=== PATIENT | female | born 1960 | race Caucasian/White ===

== ENCOUNTER 2018-08-14 21:13 | Emergency (ER) | payer OTHER ==
[2018-08-14] MEDS ORDERED: Ketorolac Tromethamine 30 MG/ML VIAL ONE (21:29)
--- NOTE | 2018-08-14 22:04 | RAD ---
FOUR VIEWS RIGHT KNEE: 08/14/18 HISTORY: Pain. COMPARISON: None. FINDINGS: Joint spaces are preserved. No fracture or malalignment. No significant joint effusion Minimal osteophyte formation of the patellofemoral compartment and the medial compartment. IMPRESSION: No fracture. Minimal bicompartmental degenerative change. POS: [facility]
== END 2018-08-14 22:14 | disposition home or self-care (01) ==
LOC: ERS 21:13
DX: M25.561 Pain in right knee (principal); E03.9 Hypothyroidism, unspecified; Z79.899 Other long term (current) drug therapy
CPT/HCPCS: 96372; J1885

== ENCOUNTER 2019-02-26 01:03 | Outpatient (CLI) | payer OTHER ==
[2019-02-26 09:57] LABS: Bilirubin Negative (Negative); Blood, Urine Negative (Negative); Clarity CLEAR (Clear); Glucose, Urine (Dipstick) Negative (Negative); Leukocyte Negative (Negative); Nitrite Negative (Negative); Protein, Urine (Dipstick) Negative (Neg-Trace); Specific Gravity, Urine 1.018 (1.002-1.036); Urobilinogen 0.2 mg/dL (0.2-1.0)
[2019-02-26 09:59] LABS: Bacteria/HPF None Seen HPF (None Seen); Hyaline Casts/LPF 0-3 HYALINE CAST LPF (0-3 Hyaline); Pathc Cast-AUWi Flag 0.27 (0-2.49); RBC/HPF 0-3 HPF (0-3); Squamous Epithelial 0-3 HPF (0-3); WBC/HPF 0-3 HPF (0-3)
[2019-02-26 10:07] LABS: INR-International Normal Ratio 0.9; PTT 29.3 SEC (22.9-36.1); Prothrombin Time 12.3 SEC (12.0-14.7)
--- NOTE | 2019-02-26 20:04 | EKG ---
Test Reason : Blood Pressure : / mmHG Vent. Rate : 066 BPM Atrial Rate : 066 BPM P-R Int : 148 ms QRS Dur : 096 ms QT Int : 398 ms P-R-T Axes : 014 019 052 degrees QTc Int : 417 ms Normal sinus rhythm Incomplete right bundle branch block Borderline ECG No previous ECGs available Confirmed by BRUNILDA LOCKHART, DR. Rollins ([id number]) on 02/26/2019 8:04:16 PM Referred By: MIRI Confirmed By:DR. Ayo WORLEY MD
== END 2019-02-26 01:04 | disposition home or self-care (01) ==
LOC: LABBT 01:03
PROVIDERS: ATTEND Orthopaedic Surgery
DX: Z01.818 Encounter for other preprocedural examination (principal); M17.11 Unilateral primary osteoarthritis, right knee
CPT/HCPCS: 81001; 85610; 85730; 87086; 93005; 93010

== ENCOUNTER 2019-02-26 08:00 | Inpatient (IN) | payer OTHER ==
--- NOTE | 2019-03-05 08:32 | HP ---
HISTORY OF PRESENT ILLNESS: The patient is a 58-year-old female, who has a long history of progressive right knee pain without specific injury. She has had progressive pain with weightbearing and change in position despite rest, restriction of activities. Multiple injections including cortisone and Synvisc. She has had progressive symptoms despite rest, restriction of activities, and lifestyle adjustments. She cannot tolerate NSAIDs due to history of previous gastric bypass. The pain is now in her day-to-day activities including walking, getting dressed, and sleeping. PAST MEDICAL HISTORY: The patient has had previous gastric band and history of gastric ulcer. She has had carpal tunnel release. She has no other major medical problems. ALLERGIES: SHE HAS NO KNOWN ALLERGIES. FAMILY HISTORY: Otherwise, unremarkable. SOCIAL HISTORY: Otherwise, unremarkable. REVIEW OF SYSTEMS: Otherwise, unremarkable. PHYSICAL EXAMINATION: GENERAL: Reveals a healthy female. HEENT: Unremarkable. NECK: Supple. CHEST: Clear. HEART: Regular rate and rhythm. ABDOMEN: Soft and nontender. PELVIC: Deferred. RECTAL: Deferred. BREASTS: Deferred. EXTREMITIES: Pertinent findings of the right knee, there is puffiness. No definite effusion. There is slight varus. There is tenderness and crepitus over the medial joint line. Range of motion is 3 to 115 degrees. There is no instability. Distal pulses are 1+. There is no pain with range of motion of the right hip. NEUROVASCULAR: Intact. DIAGNOSTIC STUDIES: X-rays of the right knee reveal medial joint space narrowing with minimal joint space remaining. MRI scan of the knee reveals grade 4 changes in the medial compartment and degenerative medial meniscal tear and tricompartmental osteophytes. IMPRESSION: Degenerative arthritis, right knee. PLAN: Right total knee replacement. The nature of the surgery, length of recovery, and potential complications such as infection, loss of motion, incomplete relief, neurovascular injury, thromboembolic phenomena, possible transfusion, and need for revision have been discussed in detail. Job ID: [id number]
[2019-03-09] MEDS ORDERED: Lidocaine 1% (PF) 30 ML VIAL ONE (06:12)
[2019-03-09] MEDS ORDERED: Midazolam HCl 2 mg/2 ml Vial ONE (06:12)
[2019-03-09] MEDS ORDERED: Fentanyl 100 MCG/2 ML VIAL ONE ×4 (06:12→09:36)
[2019-03-09] MEDS ORDERED: Tranexamic Acid 1,000 MG/10 ML VIAL ONE ×2 (06:16→08:43)
[2019-03-09] MEDS ORDERED: Sodium Chloride 0.9% 100 ML ONE (06:16)
[2019-03-09] MEDS ORDERED: Bupivacaine/Epinephrine 0.25% 30 ML VIAL ONE (06:43)
[2019-03-09] MEDS ORDERED: Ketorolac Tromethamine 30 MG/ML VIAL IVP PRN (07:13)
[2019-03-09] MEDS ORDERED: HYDROcodone/Acetaminophen 10/325 mg Tablet PO PRN ×2 (07:13)
[2019-03-09] MEDS ORDERED: Ropivacaine HCl/PF 250 ML in Premix Bag 1 BAG NERVE BLCK SCH (07:13)
[2019-03-09] MEDS ORDERED: Zolpidem Tartrate 5 MG TAB PO PRN ×2 (07:13→11:19)
[2019-03-09] MEDS ORDERED: Promethazine HCl 25 MG/ML VIAL IM PRN ×2 (07:13→08:52)
[2019-03-09] MEDS ORDERED: Ondansetron PF 4 MG/2 ML Vial IVP PRN ×2 (07:13→11:19)
[2019-03-09] MEDS ORDERED: traMADol HCl 50 MG TAB PO PRN ×3 (07:13→11:19)
[2019-03-09] MEDS ORDERED: Fentanyl 100 MCG/2 ML VIAL SLOW IVP PRN ×3 (07:14→11:19)
[2019-03-09] MEDS ORDERED: HYDROmorphone 2 MG/ML VIAL SLOW IVP PRN (08:52)
[2019-03-09] MEDS ORDERED: Ondansetron HCl/PF 4 MG/2 ML Vial IVP PRN (08:52)
[2019-03-09] MEDS ORDERED: Promethazine HCl 25 MG/ML VIAL SLOW IVP PRN ×2 (08:52→11:19)
[2019-03-09] MEDS ORDERED: Morphine Sulfate 2 MG/ML SYRINGE SLOW IVP PRN (08:52)
[2019-03-09] MEDS ORDERED: PACU-Morphine 4MG/ML VIAL SLOW IVP PRN (08:52)
[2019-03-09] MEDS ORDERED: Tranexamic Acid 1,000 MG in Sodium Chloride 0.9% 100 ML IVPB SCH ×2 (09:00→12:30)
--- NOTE | 2019-03-09 09:05 | RAD ---
RIGHT KNEE 2 VIEWS: HISTORY: Total knee replacement FINDINGS: There are recent postoperative changes of total knee arthroplasty in good position and alignment. Sof t tissue air is present.
[2019-03-09] MEDS ORDERED: Morphine 4 MG/ML VIAL ONE (10:09)
[2019-03-09] MEDS ORDERED: Promethazine HCl 25 MG/ML VIAL ONE (10:13)
[2019-03-09] MEDS ORDERED: diphenhydrAMINE 25 MG CAP PO PRN (11:19)
[2019-03-09] MEDS ORDERED: Acetaminophen 325 MG TAB PO PRN (11:19)
[2019-03-09] MEDS ORDERED: Ropivacaine 0.2% HCl/PF (40 MG/20 ML VIAL) ONE (11:23)
[2019-03-09] MEDS ORDERED: Ropivacaine 0.5% HCl/PF (150 MG/30 ML VIAL) ONE (11:23)
[2019-03-09] MEDS ORDERED: Vancomycin HCl 1 GM in Premix Bag 1 BAG IVPB SCH ×2 (12:00→19:00)
[2019-03-09] MEDS ORDERED: Lidocaine 1% PF 5 ML VIAL ONE (12:03)
[2019-03-09] MEDS ORDERED: PROPOFOL 200 MG/20 ML VIAL ONE (12:03)
[2019-03-09] MEDS ORDERED: Ondansetron PF 4 MG/2 ML Vial ONE (12:03)
[2019-03-09] MEDS ORDERED: Dexamethasone 20 MG/5 ML VIAL ONE (12:03)
[2019-03-09 12:33] VITALS: BMI 30.2
[2019-03-09] MEDS: Sodium Chloride 0.9% 1,000 ML IV SCH ×3 (12:47→20:46)
--- NOTE | 2019-03-09 12:49 | OP ---
DATE OF PROCEDURE: 03/09/2019 [employer]: Anselmo Inman PA-C ANESTHESIA: General plus adductor canal and sciatic nerve blocks. PREOPERATIVE DIAGNOSIS: Degenerative arthritis, right knee. POSTOPERATIVE DIAGNOSIS: Degenerative arthritis, right knee. PROCEDURE: Right total knee replacement with computer-assisted navigation with cemented [employer] components (#3 femoral component, #4 primary tibial base plate with 9 mm CS plastic insert, and A29 all-plastic patellar component). DESCRIPTION OF PROCEDURE: After satisfactory anesthesia was induced in supine position, sequential compression device was applied to the nonoperative leg throughout the procedure. The right leg was then prepped and draped in routine sterile fashion. The leg was elevated and exsanguinated with an Esmarch bandage and the tourniquet was inflated to 300 mmHg. A gently curved medial parapatellar incision was made, carried down through the subcutaneous tissues and bleeding points controlled with Bovie cautery. Medial parapatellar arthrotomy was performed of the patella, this was carried laterally and portions of the fat pad were excised for exposure. There was marked degenerative arthritis of the knee especially medially with large areas of exposed bone. Using the Brandpotion pinless navigation system and the appropriate guides, the distal femoral and proximal tibial articular surfaces were excised with an oscillating saw to accept the trial components. It was felt that #3 femoral component and #4 tibial base plate with 9 mm CS plastic insert gave appropriate size, fit, stability, and correction of the preoperative deformity. The patellar articular surface was excised to accept an all-plastic A29 patellar component. There was good range of motion and good patellar tracking. The trial components were removed. The knee was copiously irrigated with pulsatile lavage. The bony surfaces were thoroughly cleaned and dried. The permanent components were then cemented in a single stage using one package of cement premixed with 1 g of tobramycin powder. Excess cement was removed. There was again good fit and stability of the components. The knee was copiously irrigated. The medial retinaculum and quadriceps mechanism were closed with interrupted #2 Vicryl and a running #2 Quill. Subcutaneous tissues were closed with running 0 Quill suture and the skin was closed with running subcuticular 3-0 Monoderm and SurgiSeal skin adhesive. A sterile bulky dressing was applied and the tourniquet deflated after 67 minutes. The foot promptly pinked up and a sequential compression device was applied to her operated leg. She was awakened and taken to the recovery room in stable condition. There were no apparent intraoperative complications. The estimated blood loss was less than 100 mL. Job ID: [id number]
[2019-03-09] MEDS: HYDROcodone/Acetaminophen 10/325 mg Tablet PO PRN ×3 (13:20→21:10)
[2019-03-09] MEDS: CEFAZOLIN 2 GM in Premix Bag 1 BAG IVPB SCH ×2 (14:44→21:02)
[2019-03-09] MEDS: Ferrous Gluconate 324 MG TAB PO SCH (20:38)
[2019-03-09] MEDS: Senokot S 8.6-50 MG TAB PO SCH (20:38)
[2019-03-09] MEDS: cycloSPORINE 0.05% Ophthalmic Droperette EA EYE SCH (20:45)
[2019-03-10 04:54] LABS: Hemoglobin 11.7 g/dL (12.0-16.0); Mean Corpuscular HGB CONC 33.3 g/dL (32.0-36.0); Mean Corpuscular Hemoglobin 30.5 pg (27.0-31.0); Mean Corpuscular Volume 91.7 fL (78.0-98.0); Mean Platelet Volume 6.9 fL (7.4-10.4); Platelet Count 243 thou/uL (130-400); RBC Distribution Width 12.2 % (11.5-14.5); Red Blood Cell (RBC) Count 3.83 mill/uL (4.20-5.40); White Blood Cell (WBC) Count 9.8 thou/uL (4.8-10.8)
[2019-03-10] MEDS ORDERED: Levothyroxine Sodium 75 MCG TAB PO SCH (06:00)
[2019-03-10] MEDS: Levothyroxine Sodium 75 MCG TAB PO SCH (06:11)
[2019-03-10] MEDS: HYDROcodone/Acetaminophen 10/325 mg Tablet PO PRN ×3 (06:37→20:50)
[2019-03-10] MEDS: Rivaroxaban 10 MG TAB PO SCH (08:17)
[2019-03-10] MEDS: Cyanocobalamin (Vitamin B-12) 1,000 MCG TAB PO SCH (08:17)
[2019-03-10] MEDS: Ferrous Gluconate 324 MG TAB PO SCH ×2 (08:17→20:50)
[2019-03-10] MEDS: Senokot S 8.6-50 MG TAB PO SCH ×2 (08:17→20:50)
[2019-03-10] MEDS: Multivitamin W/ Minerals 1 TAB PO SCH (08:17)
[2019-03-10] MEDS: cycloSPORINE 0.05% Ophthalmic Droperette EA EYE SCH ×2 (10:51→22:00)
--- NOTE | 2019-03-10 15:07 | PRG ---
DATE OF SERVICE: 03/10/2019 SUBJECTIVE: Regi is a 58-year-old female, postoperative day 1 from a right total knee arthroplasty. Pain has been well controlled, and she has very little in the way of complaints today. She ambulated approximately 300 feet yesterday evening. OBJECTIVE: VITAL SIGNS: Temperature 98.5, pulse 74, respiratory rate 16, blood pressure is 112/67. GENERAL: She is alert and oriented to person, place, time, and situation. Grossly nonfocal. Appropriate with examiner. EXTREMITIES: Her incision is clean and closed. There is no erythema. No strikethrough noted. LABORATORY DATA: Hemoglobin and hematocrit 11.7 and 35.2. IMPRESSION: 1. A 58-year-old white female, postoperative day 1 right total knee arthroplasty. 2. Asymptomatic anemia. PLAN: Continue current care. Discharge tomorrow. Job ID: [id number]
[2019-03-11] MEDS: Levothyroxine Sodium 75 MCG TAB PO SCH (06:46)
[2019-03-11] MEDS: HYDROcodone/Acetaminophen 10/325 mg Tablet PO PRN (08:39)
[2019-03-11] MEDS: Ferrous Gluconate 324 MG TAB PO SCH (08:40)
[2019-03-11] MEDS: Rivaroxaban 10 MG TAB PO SCH (08:41)
[2019-03-11] MEDS: Multivitamin W/ Minerals 1 TAB PO SCH (08:41)
[2019-03-11] MEDS: Senokot S 8.6-50 MG TAB PO SCH (08:41)
[2019-03-11] MEDS: Cyanocobalamin (Vitamin B-12) 1,000 MCG TAB PO SCH (08:41)
[2019-03-11] MEDS: cycloSPORINE 0.05% Ophthalmic Droperette EA EYE SCH (09:54)
[2019-03-11 12:04] VITALS: BP 129/80; TEMP 98
== END 2019-03-11 15:10 | disposition home or self-care (01) | DRG 470 ==
LOC: SURG A 03-09 05:05 → SJJU 03-09 11:11
PROVIDERS: ADMIT Orthopaedic Surgery; ATTEND Orthopaedic Surgery
PROC: 0SRC0J9 Replacement of Right Knee Joint with Synthetic Substitute, Cemented, Open Approach (ICD-10-PCS; principal; 2019-03-09)
DX: M17.11 Unilateral primary osteoarthritis, right knee (principal); D64.9 Anemia, unspecified; E03.9 Hypothyroidism, unspecified; K21.9 Gastro-esophageal reflux disease without esophagitis; J30.2 Other seasonal allergic rhinitis; Z90.710 Acquired absence of both cervix and uterus; Z79.899 Other long term (current) drug therapy; Z98.84 Bariatric surgery status
CPT/HCPCS: 36415; 85027; 86850; 86900; 86901; C1713; C1776; J0690; J1100; J2001; J2250; J2270; J2405; J2550; J2704; J2795; J3010; J3370; J3490

== ENCOUNTER 2019-03-03 08:44 | Outpatient (CLI) | payer OTHER | END 2019-03-03 08:45 | disposition home or self-care (01) | LOC: LABBT 08:44 | PROVIDERS: ATTEND Orthopaedic Surgery | DX: Z53.9 Procedure and treatment not carried out, unspecified reason (principal) ==

== ENCOUNTER 2019-06-22 14:19 | Day surgery (SDC) | payer OTHER ==
[2019-06-22] MEDS ORDERED: Ondansetron PF 4 MG/2 ML Vial ONE ×3 (14:34→20:24)
[2019-06-22] MEDS ORDERED: Morphine 4 MG/ML VIAL ONE (14:34)
[2019-06-22] MEDS ORDERED: Sodium Chloride 0.9% 100 ML ONE (14:49)
[2019-06-22] MEDS ORDERED: Piperacillin/Tazobactam 3.375 GM VIAL ONE (14:49)
[2019-06-22] MEDS ORDERED: Dexamethasone 20 MG/5 ML VIAL ONE (14:59)
[2019-06-22] MEDS ORDERED: Lidocaine 1% PF 5 ML VIAL ONE (14:59)
[2019-06-22] MEDS ORDERED: PHENYLEPHRINE-NS 100 MCG/ML 10 ML SYRINGE ONE (14:59)
[2019-06-22] MEDS ORDERED: PROPOFOL 200 MG/20 ML VIAL ONE (14:59)
[2019-06-22] MEDS ORDERED: Glycopyrrolate 0.2 MG/ML 5 ML SYRINGE ONE (14:59)
[2019-06-22] MEDS ORDERED: Rocuronium Bromide 10 MG/ML (10ML VIAL) ONE (14:59)
[2019-06-22] MEDS ORDERED: Succinylcholine Chloride 20 MG/ML 10 ml SYRINGE FS ONE (14:59)
[2019-06-22 15:00] LABS: #Basophils 0.1 thou/uL (0.0-0.2); #Eosinphils 0.2 thou/uL (0.0-0.7); #Monocytes 0.5 thou/uL (0.11-0.59); #Neutrophils 3.6 thou/uL (1.40-6.50); %Eosinophils 2.4 % (0.0-10.0); %Lymphocytes 41.2 % (21.0-51.0); %Neutrophils 48.4 % (42.0-75.0); Hemoglobin 13.7 g/dL (12.0-16.0); Mean Corpuscular HGB CONC 33.9 g/dL (32.0-36.0); Mean Corpuscular Hemoglobin 29.6 pg (27.0-31.0); Mean Corpuscular Volume 87.4 fL (78.0-98.0); Mean Platelet Volume 6.9 fL (7.4-10.4); Platelet Count 298 thou/uL (130-400); RBC Distribution Width 12.4 % (11.5-14.5); Red Blood Cell (RBC) Count 4.63 mill/uL (4.20-5.40); White Blood Cell (WBC) Count 7.4 thou/uL (4.8-10.8)
[2019-06-22 15:23] LABS: ALT (SGPT) 12 U/L (8-55); AST (SGOT) 17 U/L (5-34); Albumin 4.1 g/dL (3.4-4.8); Alkaline Phosphatase 131 U/L (40-110); Anion Gap 12 mmol/L (10-20); BUN (Urea Nitrogen) 10 mg/dL (9.8-20.1); Bilirubin, Total 0.4 mg/dL (0.2-1.2); Calc. Creatinine Clearance 0 mL/min (70-130); Calcium 9.5 mg/dL (7.8-10.44); Carbon Dioxide 24 mmol/L (23-31); Chloride 103 mmol/L (98-107); Estimated GFR-MDRD 69; Globulin 3.3 g/dL (2.4-3.5); Glucose 98 mg/dL (80-115); Protein, Total 7.4 g/dL (6.0-8.3); Sodium 135 mmol/L (136-145)
[2019-06-22 15:27] LABS: PTT 31.8 SEC (22.9-36.1); Prothrombin Time 12.8 SEC (12.0-14.7)
[2019-06-22] MEDS ORDERED: HYDROmorphone 0.5 MG/0.5 ML SYRINGE ONE (15:32)
[2019-06-22] MEDS ORDERED: Midazolam HCl 2 mg/2 ml Vial ONE (15:32)
[2019-06-22] MEDS ORDERED: Fentanyl 100 MCG/2 ML VIAL ONE ×2 (15:32→17:47)
[2019-06-22] MEDS ORDERED: Lidocaine 2% Jelly 5 ML TUBE ONE (15:32)
[2019-06-22] MEDS ORDERED: Bupivacaine/Epinephrine 0.25% 30 ML VIAL ONE (15:36)
--- NOTE | 2019-06-22 15:46 | HP ---
HISTORY OF PRESENT ILLNESS: Ms. Wright is a 59-year-old woman, who presented to Emergency Department in [place] earlier today. The patient was complaining of insidious onset periumbilical abdominal pain, which started 3 days ago. Pain intensified to high 10/10 by midnight, associated with multiple episodes of nausea, but no emesis. She thought she had fever, although she did not record her body temperature. She did experience some chills. The pain fails to resolve. As a result, the patient presented to emergency department today. She reports having bowel movement this morning. Last meal was small breakfast at 9 o'clock this morning. Currently, her pain is located in the right lower quadrant. It is now rated 7/10. PAST MEDICAL HISTORY: Pertinent for degenerative arthritic disease and hypothyroidism. She had a remote history of bleeding ulcer, but has not had any problems over the last 2 to 3 years. PAST SURGICAL HISTORY: Pertinent for x3, laparoscopic gastric bypass for obesity, total right knee arthroplasty 4 months ago, right carpal tunnel release as well as right thumb release of trigger finger and total abdominal hysterectomy. SOCIAL HISTORY: She is , lives at home with her . She works at a local [employer]. She denies any cigarette smoking or illicit drug abuse. She admits to occasional intake of ethanol in moderate amount. PRE-HOSPITAL MEDICATIONS: Include; 1. Levothyroxine 75 mcg p.o. daily. 2. Glucosamine complex one p.o. daily. 3. Vitamin B12 1000 mcg p.o. daily. ALLERGIES: THE PATIENT DENIES ANY KNOWN DRUG ALLERGIES. REVIEW OF SYSTEMS: Ten-point review of systems essentially unremarkable except as stated in past medical history and chief complaint. PHYSICAL EXAMINATION: GENERAL: This reveals a 59-year-old normally developed woman, who is otherwise coherent and interactive and appears stated age. The patient is alert and oriented x3. She appears to be in no acute distress at time of my evaluation. VITAL SIGNS: Today includes blood pressure 166/79, pulse is 73, respiratory rate is 16, temperature is 98 degrees Fahrenheit, oxygen saturation is 96% on room air. HEENT: Reveals normocephalic and atraumatic. The pupils are equal, round, reactive to light and accommodation. Extraocular muscles are intact bilaterally. No scleral icterus is present. Oral mucosa is pink and moist. No lesions are noted. NECK: Supple. No palpable lymphadenopathy or thyromegaly present. HEART: Reveals regular rate and rhythm. No murmurs or gallops auscultated. LUNGS: Clear to auscultation bilaterally. Her breathing is regular and nonlabored. ABDOMEN: Soft and moderately obese. She has right lower quadrant tenderness on McBurney's. She has a positive Rovsing sign. Liver and spleen nonpalpable below costal margin. EXTREMITIES: Reveal 2+ radial and pedal pulses bilaterally. No ankle edema is present. She has a healed anterior right knee vertical incision consistent with previous history of right knee arthroplasty. She has a low Pfannenstiel incision that is completely healed, consistent with prior history of and abdominal hysterectomy. NEUROLOGIC: Reveals no focal deficits present. LABORATORY FINDINGS: Include a CBC obtained in [place] with 7400 white blood cells, hemoglobin and hematocrit are 13.7 and 40.4 respectively. Platelet count 298,000. At the time of my dictation, basic metabolic profile has been obtained and results pending at this time. I have personally reviewed the CT scan of the abdomen and pelvis, which was obtained earlier in [place], which is consistent with dilated appendix with periappendiceal fat stranding. There is also a small amount of free pelvic fluid with no pneumoperitoneum present. IMPRESSION: Acute appendicitis. RECOMMENDATIONS: Laparoscopic appendectomy. I have advised the patient of the above findings and recommendation. Also, I informed the patient of the risks and benefits of the proposed surgery to include, but not limited to bleeding, infection, injury to bowel or surrounding structures. This information was provided to the patient and her at bedside in the presence of her nurse. The patient and her have both indicated understanding of the information provided. I have answered their questions. The patient has granted consent for this admission and surgical intervention. Job ID: [id number]
--- NOTE | 2019-06-22 19:04 | OP ---
DATE OF PROCEDURE: 06/22/2019 PREOPERATIVE DIAGNOSIS: Acute appendicitis. POSTOPERATIVE DIAGNOSIS: Acute appendicitis. OPERATION PERFORMED: Laparoscopic appendectomy. ANESTHESIA: General endotracheal. ESTIMATED BLOOD LOSS: 5 mL. FLUIDS GIVEN: 1500 mL crystalloids. COUNTS: Sponge and instrument counts were verified as correct x2. COMPLICATIONS: None apparent at time of operation. INDICATIONS FOR OPERATION: A 59-year-old woman presented with 3-day history of abdominal pain. Clinical radiographic examination was consistent with acute appendicitis, for which the patient was brought to the operating room for appendectomy. Findings are consistent with suppurative appendix with evidence of perforation at the base. No pus or fecal contamination. DESCRIPTION OF PROCEDURE: Informed consent was obtained from the patient. She was brought to the operating room and placed in supine position. Following general anesthesia, a Kyle catheter was inserted and placed to bedside drain. The abdomen was sterilely prepped and draped in usual fashion. The skin below the umbilicus was infiltrated with 0.25% Marcaine with epinephrine. A small curvilinear infraumbilical incision was made using 11 scalpel. Umbilical stalk was grasped with Saad and elevated. Veress needle was inserted through the incision and placed in the peritoneal cavity through which the abdomen was insufflated with 3 L of CO2 gas. Intraabdominal pressure was noted at 1 mmHg. Following abdominal insufflation, Veress needle was removed and a 5 mm trocar introduced using a Visiport under laparoscopy. Laparoscopy confirmed proper placement of the port. No injuries to underlying structures. Additional laparoscopy reveals the right lower quadrant obscured by omental adhesions. Additionally, there were omental adhesions in the anterior abdominal wall and pelvis from previous . At this juncture, a 5 mm left lower quadrant port was placed under direct vision. Through this, the LigaSure device was introduced and omental adhesions were taken down to reveal the anterior abdominal wall over the pelvis. Under direct laparoscopy, a 5 mm suprapubic port was then placed. The patient was placed in a Trendelenburg position, rotated to her left. I then introduced a Prestige grasper through the left lower quadrant port site, using this to bluntly take down omental adhesions to reveal retrocecal suppurative appendix. Endo-Vincenzo forceps was introduced through the suprapubic port site grasping the appendix, which was elevated. The mesoappendix was sterilely divided at the base using the LigaSure device with good hemostasis. The appendix itself was divided at the appendicocecal junction using an Endoloop. The suppurative appendix was delivered off the abdominal cavity using an EndoCatch. Operative site was inspected for good hemostasis. Finding no other pathology, laparoscopy was terminated. The operative site was irrigated with saline. The abdomen was desufflated. All ports and instruments removed and accounted for. Skin incisions were closed using 4-0 Monocryl suture in subcuticular fashion. Dermabond was applied over incisional closure. The patient tolerated the operation without any apparent complication and was returned to recovery room in satisfactory condition. Job ID: [id number]
[2019-06-22] MEDS ORDERED: HYDROcodone/Acetaminophen 5/325 mg Tablet ONE (19:59)
== END 2019-06-22 20:36 | disposition home or self-care (01) ==
LOC: ERS 14:19 → SDC/OP 15:20
PROVIDERS: ATTEND Surgery
PROC: 0DTJ4ZZ Resection of Appendix, Percutaneous Endoscopic Approach (ICD-10-PCS; principal; 2019-06-22)
DX: K35.80 Unspecified acute appendicitis (principal); Z79.899 Other long term (current) drug therapy
CPT/HCPCS: 85025; 85610; 85730; 88304; J0131; J1100; J1170; J2001; J2250; J2270; J2405; J2543; J2704; J3010; J3490

== ENCOUNTER 2020-07-25 11:07 | Outpatient (CLI) | payer OTHER ==
--- NOTE | 2020-07-25 11:41 | MMO ---
Bilateral MAMMO Bilat Screen [facility]. CLINICAL HISTORY: Patient is 60 years old and is seen for screening. The patient has the following family history of breast cancer: aunt, at age 62, malignant (generic). The patient has no personal history of cancer. VIEWS: The views performed were: bilateral craniocaudal with tomosynthesis and bilateral mediolateral oblique with tomosynthesis. FILMS COMPARED: No prior imaging studies are available for comparison. This study has been interpreted with the assistance of computer-aided detection. MAMMOGRAM FINDINGS: There are scattered fibroglandular densities. There is a high density, round mass measuring 6 millimeters with circumscribed margins seen in the posterior region of the right breast at 12 o'clock. In the left breast, there are no suspicious masses, calcifications or areas of architectural distortion. IMPRESSION: MASS IN THE RIGHT BREAST REQUIRES ADDITIONAL EVALUATION. RECOMMEND DIAGNOSTIC MAMMOGRAM. ULTRASOUND MAY ALSO PROVE USEFUL AT RECALL. THE RESULTS OF THIS EXAM WERE SENT TO THE PATIENT. ACR BI-RADS Category 0 - Incomplete: Need additional imaging evaluation. [facility] will notify the patient of the need for additional imaging services. MAMMOGRAPHY NOTE: 1. A negative mammogram report should not delay a biopsy if a dominant of clinically suspicious mass is present. 2. Approximately 10% to 15% of breast cancers are not detected by mammography. 3. Adenosis and dense breasts may obscure an underlying neoplasm. Reported by: FADIA TRUONG MD Electonically Signed: [id number]
== END 2020-07-25 11:08 | disposition home or self-care (01) ==
LOC: BICMAMMO 11:07
PROVIDERS: ATTEND Registered Nurse
DX: Z12.31 Encounter for screening mammogram for malignant neoplasm of breast (principal); N63.11 Unspecified lump in the right breast, upper outer quadrant; Z80.3 Family history of malignant neoplasm of breast
CPT/HCPCS: 77063; 77067

== ENCOUNTER 2020-08-01 09:44 | Outpatient (CLI) | payer OTHER ==
--- NOTE | 2020-08-01 10:37 | MMO ---
Right Breast MAMMO Unilat Diag DDI RT+RORO. CLINICAL HISTORY: Patient is 60 years old and is seen for diagnostic exam. The patient has the following family history of breast cancer: aunt, at age 62, malignant (generic). The patient has no personal history of cancer. VIEWS: The views performed were: right mediolateral oblique spot compression with tomosynthesis and right mediolateral with tomosynthesis. FILMS COMPARED: The present examination has been compared to prior imaging studies performed at [facility] on 07/25/2020 and 08/01/2020. This study has been interpreted with the assistance of computer-aided detection. MAMMOGRAM FINDINGS: There are scattered fibroglandular densities. There is a round mass with circumscribed margins seen in the axillary tail of the right breast. Ultrasound showed small lymph nodes. There are no suspicious masses, suspicious calcifications, or new areas of architectural distortion. IMPRESSION: THERE IS NO MAMMOGRAPHIC EVIDENCE OF MALIGNANCY. A ROUTINE FOLLOW-UP MAMMOGRAM IN 1 YEAR IS RECOMMENDED. THE RESULTS OF THIS EXAM WERE SENT TO THE PATIENT. ACR BI-RADS Category 2 - Benign finding MAMMOGRAPHY NOTE: 1. A negative mammogram report should not delay a biopsy if a dominant of clinically suspicious mass is present. 2. Approximately 10% to 15% of breast cancers are not detected by mammography. 3. Adenosis and dense breasts may obscure an underlying neoplasm. Reported by: SAM OWENS MD Electonically Signed: [id number]
--- NOTE | 2020-08-01 12:39 | ULT ---
RIGHT BREAST ULTRASOUND: HISTORY: Round circumscribed nodular density seen in the axillary region of right breast on recent mammogram hector fried. COMPARISON: 07/25/2020 mammogram and today's mammogram. FINDINGS: On today's mammogram, actually 3 nodular densities were seen within the axillary region of the right breast on some additional views. This ultrasound examination shows all three of these densities to r epresent cysts. One is a 4-5 mm size round in shape. This would correspond to the original nodular density seen on the previous mammogram. IMPRESSION: BIRADS category 2 - benign findings. POS: OFF
== END 2020-08-01 09:45 | disposition home or self-care (01) ==
LOC: BICMAMMO 09:44
PROVIDERS: ATTEND Registered Nurse
DX: N63.10 Unspecified lump in the right breast, unspecified quadrant (principal)
CPT/HCPCS: G0279